=== PATIENT | female | born 2000 | race African-American/Black ===

== ENCOUNTER 2023-06-26 15:40 | Emergency (ER) | payer BC ==
[~2023-06-26] VITALS: Ht 154.9 cm; Wt 77.1 kg
[2023-06-26 15:52] VITALS: BP_SYST 112; PULSE 83; RESP 18; TEMP 97.6; O2SAT 100
[2023-06-26 17:23] LABS: BASOPHILS % (AUTO) 0.4 % (0.0-2.0); EOSINOPHILS # (AUTO) 0.1 K/uL (0.0-0.4); EOSINOPHILS % (AUTO) 1.3 % (0.0-4.0); HEMATOCRIT 34.6 % (36-48); HEMOGLOBIN 11.8 g/dL (12.0-16.0); LYMPHOCYTES # (AUTO) 2.2 K/uL (1.0-5.5); LYMPHOCYTES % (AUTO) 29.5 % (20.5-51.5); MEAN CORPUSCULAR HEMOGLOBIN 27 pg (27-31); MEAN CORPUSCULAR HGB CONC 34 % (32-36); MEAN CORPUSCULAR VOLUME 78 fL (79.0-98.0); MONOCYTES # (AUTO) 0.4 K/uL (0.0-1.0); MONOCYTES % (AUTO) 5.7 % (1.7-9.3); NEUTROPHILS # (AUTO) 4.6 K/uL (1.8-7.7); NEUTROPHILS % (AUTO) 63.1 % (40.0-70.0); PLATELET COUNT (AUTO) 275 K/uL (130-430); RED BLOOD CELL COUNT(AUTO) 4.46 MIL/uL (4.2-6.2); RED CELL DISTRIBUTION WIDTH 18.2 % (9.0-15.0); WHITE BLOOD COUNT (AUTO) 7.4 K/uL (4.8-10.8)
[2023-06-26] MEDS ORDERED: IBUP-1969 PO (18:03)
[2023-06-26 18:19] VITALS: BP_SYST 112; PULSE 83; RESP 18; TEMP 97.6; O2SAT 100
== END 2023-06-26 18:19 | disposition home or self-care (01) ==
LOC: SED 15:40
DX: O03.9 Complete or unspecified spontaneous abortion without complication (principal); N93.9 Abnormal uterine and vaginal bleeding, unspecified; R10.30 Lower abdominal pain, unspecified; Z79.899 Other long term (current) drug therapy
CPT/HCPCS: 36415; 76856-TC; 84702; 85025; 99284